=== PATIENT | male | born 1965 | race Caucasian/White ===

== ENCOUNTER 2016-12-17 23:00 | Emergency (ER) | payer SELFPAY ==
[~2016-12-17] VITALS: Ht 198.1 cm; Wt 140.4 kg
[2016-12-17 23:57] LABS: BASOPHIL COUNT 0.1 K/uL (0-0.1); EOSINOPHIL (%) 7.2 % (0-5); EOSINOPHIL COUNT 0.7 K/uL (0-0.3); HEMATOCRIT 43.9 % (38.0-50.0); IMMATURE GRANULOCYTE (%) 0.2 % (0.0-0.7); INSTRUMENT ABS NEUTROPHIL CT 4.9 K/uL; LYMPHOCYTE COUNT 2.5 K/uL (1.0-2.8); MCHC 35.1 G/DL (30.0-36.0); MCV 88.3 FL (86-99); MEAN PLAT.VOLUME 9.8 uM^3 (9.0-12.4); MONOCYTE (%) 9.8 % (3-12); MONOCYTE COUNT 0.9 K/uL (0-0.8); NEUTROPHIL COUNT 4.9 K/uL (1.8-6.4); PLATELET COUNT 226 K/uL (156-360); RBC DIS.WIDTH-SD 41.9 % (39-53); RED BLOOD COUNT 4.97 M/uL (4.00-5.50); WHITE BLOOD COUNT 9.1 K/uL (4.1-10.2)
[2016-12-18 00:06] LABS: CHLORIDE 106 mEq/L (99-109); POTASSIUM 3.5 mEq/L (3.7-5.4); SODIUM 141 mEq/L (136-147)
[2016-12-18 00:08] LABS: GLUCOSE 115 mg/dL (70-99)
[2016-12-18 00:09] LABS: ANION GAP 11 MEQ/L (2-14)
[2016-12-18 00:10] LABS: TOTAL BILIRUBIN 0.3 mg/dL (0.0-1.0)
[2016-12-18 00:12] LABS: ALKALINE PHOSPHATASE 48 IU/L (3-129); GFR ESTIMATE (CALCULATED) > 59 mL/min/
[2016-12-18 00:13] LABS: UREA NITROGEN (BUN) 12 mg/dL (9-23)
[2016-12-18 00:14] LABS: DIRECT BILIRUBIN 0.1 mg/dL (0.0-0.3)
[2016-12-18 00:15] LABS: LIPASE 22 U/L (1.0-51.0)
[2016-12-18 00:21] LABS: TROP-I INTERPRETATION NEGATIVE; TROPONIN-I < 0.01 ng/mL (0.0-0.30)
[2016-12-18 00:42] LABS: PROTHROMBIN TIME 10.9 SEC (10.2-12.9)
[2016-12-18 00:45] LABS: PTT 30.5 SEC (25-37)
[2016-12-18 03:23] LABS: TROP-I INTERPRETATION NEGATIVE; TROPONIN-I < 0.01 ng/mL (0.0-0.30)
[2016-12-18 04:02] VITALS: BP 140/95
== END 2016-12-18 04:02 | disposition home or self-care (01) ==
LOC: EME 23:00
PROVIDERS: Emergency Medicine
DX: E86.0 Dehydration (principal); R55 Syncope and collapse; F17.200 Nicotine dependence, unspecified, uncomplicated; Z88.0 Allergy status to penicillin
CPT/HCPCS: 71010; 80048; 80076; 83690; 83880; 84484; 85025; 85610; 85730; 93005; 99281; 99285; J7030